=== PATIENT | male | born 1955 | race Caucasian/White ===

== ENCOUNTER → 2017-09-16 | Day surgery (SDC) | payer OTHER ==
[2017-09-03 12:16] LABS: BASOPHILS # (AUTO) 0.1 (0.0-0.1); BASOPHILS % 0.8 % (0.0-1.0); EOSINOPHILS # (AUTO) 0.2 (0.0-0.4); EOSINOPHILS % 2.2 % (0.0-6.0); HEMATOCRIT 38.1 % (38.2-49.6); HEMOGLOBIN 12.9 g/dL (14.0-18.0); LYMPHOCYTES # (AUTO) 2.3 (1.0-3.2); LYMPHOCYTES % 27.5 % (18.0-39.1); MEAN CORPUSCULAR HEMOGLOBIN 32.7 pg (28-32); MEAN CORPUSCULAR HGB CONC 33.9 g/dL (31-35); MEAN CORPUSCULAR VOLUME 96.5 fL (81-99); MONOCYTES # (AUTO) 0.9 (0.2-0.8); MONOCYTES % 10.7 % (4.4-11.3); NEUTROPHILS % 58.2 % (38.7-80.0); PLATELET COUNT 184 x10e3/uL (140-360); RED BLOOD COUNT 3.95 x10e6/uL (4.3-5.7); RED CELL DISTRIBUTION WIDTH 13.5 % (11.7-14.4)
[~2017-09-16] MED LIST: ADVAIR 100-501 EACH; AMBIEN PO; AMBIEN10 MG PO; ATORVASTATIN CA20 MG PO; CHANTIX PO; FENTANYL CITRATE/PF 100MCG/2 ML INJ ONE; HYOSCYAMINE SULFATE 0.5 MG/ML AMP ONE; LIDOCAINE HCL 2% LOCAL INJ 5 ML SDV VIAL INJ ONE; MIDAZOLAM HCL 2 MG/2 ML VIAL ONE; NEXIUM40 MG PO; OMEPRAZOLE20 MG PO; PROPOFOL IV EMULSION 10 MG/ML 50 ML VIAL ONE; XARELTO20 MG
--- NOTE | 2017-09-16 15:18 | Operative Report ---
DATE OF PROCEDURE: September 16, 2017 REFERRING PHYSICIAN: Vijay Chakraborty MD, in [place]. PROCEDURE PERFORMED: Colonoscopy and polypectomy. INDICATIONS FOR COLONOSCOPY: Colorectal cancer screening, personal history of colon polyps. MEDICATION: The patient was done under MAC. Please see anesthesiologist's note. DESCRIPTION OF PROCEDURE: With the patient in the left lateral decubitus position, the flexible fiberoptic Olympus colonoscope was inserted into the rectum with ease and advanced all the way to the cecum. The mucosa overlying the cecum appeared to be within normal limits. One polyp was hot biopsied from the proximal ascending colon, and 1 polyp was snared from the distal ascending colon. One polyp was hot biopsied from the transverse colon. Three polyps were snared and 1 polyp was hot biopsied from the descending colon. Diverticular disease was noted in the sigmoid colon. Five polyps were hot biopsied and 1 polyp was snared from the sigmoid. One polyp was hot biopsied from the rectum. The scope was then retroflexed into the distal rectum. Moderate-size internal hemorrhoids were noted, none of which were actively bleeding. The scope was then straightened out. It was subsequently withdrawn. The patient tolerated the procedure well. IMPRESSION 1. Ascending colon polyps times 2, one snared and one hot biopsied. 2. Transverse colon polyp, hot biopsied times 1. 3. Descending colon polyps times 4, three snared and one hot biopsied. 4. Diverticulosis. 5. Sigmoid colon polyps times 6, five hot biopsied and one snared. 6. Internal hemorrhoids, none actively bleeding. 7. A total of 15 polyps were removed. PLAN: Follow up histology. Initiate high-fiber, low-fat diet. Initiate high-fiber supplement. The patient might benefit from a followup colonoscopy in 1 to 2 years. Job#: [id number] cc:VIJAY CHAKRABORTY M.D.
== END | disposition home or self-care (01) ==
LOC: ENDO 11:59
PROVIDERS: ATTEND Internal Medicine Gastroenterology
DX: Z12.11 Encounter for screening for malignant neoplasm of colon (principal); K63.5 Polyp of colon; K62.1 Rectal polyp; K57.30 Diverticulosis of large intestine without perforation or abscess without bleeding; K64.8 Other hemorrhoids; K21.9 Gastro-esophageal reflux disease without esophagitis; G47.33 Obstructive sleep apnea (adult) (pediatric); J44.9 Chronic obstructive pulmonary disease, unspecified; Z88.5 Allergy status to narcotic agent; Z88.0 Allergy status to penicillin; Z01.810 Encounter for preprocedural cardiovascular examination; Z01.812 Encounter for preprocedural laboratory examination; Z85.528 Personal history of other malignant neoplasm of kidney; Z90.5 Acquired absence of kidney; Z86.711 Personal history of pulmonary embolism; Z87.891 Personal history of nicotine dependence
CPT/HCPCS: 36415; 45384; 45385; 85025; 93005; J1980; J2001; J2250

== ENCOUNTER → 2018-10-01 | Day surgery (SDC) | payer OTHER ==
[2018-09-28 15:09] LABS: BASOPHILS # (AUTO) 0.1 (0.0-0.1); EOSINOPHILS # (AUTO) 0.3 (0.0-0.4); EOSINOPHILS % 3.5 % (0.0-6.0); HEMATOCRIT 40.7 % (38.2-49.6); HEMOGLOBIN 13.5 g/dL (14.0-18.0); LYMPHOCYTES # (AUTO) 1.9 (1.0-3.2); LYMPHOCYTES % 23.5 % (18.0-39.1); MEAN CORPUSCULAR HEMOGLOBIN 31.4 pg (28-32); MEAN CORPUSCULAR HGB CONC 33.2 g/dL (31-35); MEAN CORPUSCULAR VOLUME 94.7 fL (81-99); MONOCYTES % 12.5 % (4.4-11.3); NEUTROPHILS # (AUTO) 4.7 (2.1-6.9); NEUTROPHILS % 58.9 % (38.7-80.0); PLATELET COUNT 206 x10e3/uL (140-360)
[~2018-10-01] MED LIST changes: +GLUCAGON FOR INJ 1 MG VIAL ONE; +HYOSCYAMINE 0.125 MG TAB ONE; -HYOSCYAMINE SULFATE 0.5 MG/ML AMP ONE; +KEYTRUDA IV; +LEVOTHYROXINE137 MCG PO; +MULTI-VITAMIN1 EACH PO; +PHENYLEPHRINE HCL 1% 10 MG/ML VIAL ONE
[2018-10-01 13:25] VITALS: BP 125/89
--- NOTE | 2018-10-01 13:46 | Operative Report ---
DATE OF PROCEDURE: 10/01/2018 SURGEON: Chandler Swain MD PROCEDURE: Colonoscopy with polypectomy note and biopsies. INDICATIONS FOR COLONOSCOPY: Surveillance colonoscopy, personal history of numerous colon polyps. MEDICATIONS: The patient was done under MAC, please see anesthesiologist's note. PROCEDURE IN DETAIL: With the patient in left lateral decubitus position, a flexible fiberoptic Olympus colonoscope was inserted into the rectum with ease and advanced all the way to the cecum. The scope was then withdrawn slowly and mucosa overlying the cecum appeared to be within normal limits. One polyp was removed per cold biopsy forceps in the ascending colon and a prominent fold was noted in the distal ascending colon that was biopsied. The transverse appeared to be within normal limits. Some diverticular disease was noted in the distal descending and the sigmoid colon. Eight polyps were hot biopsied and three were snared from the sigmoid colon. One polyp was hot biopsied from the rectum. The scope was then retroflexed into the distal rectum and moderate-sized internal hemorrhoids were noted, none of which was actively bleeding. The scope was then straightened out, it was subsequently withdrawn. The patient tolerated procedure well. IMPRESSION: 1. Ascending colon polyp, removed per cold biopsy forceps. 2. Prominent fold in distal ascending colon, biopsied. 3. Diverticulosis. 4. Sigmoid colon polyps x11, eight hot biopsied and three snared. 5. Rectal polyp x1, hot biopsied. 6. Internal hemorrhoids, none actively bleeding. PLAN: Follow up histology. Initiate high-fiber, low-fat diet. Initiate high-fiber supplement. A total of 13 polyps were removed. The patient might benefit from a followup colonoscopy in 1 to 2 years. Chandler Swain MD [facility] [place] /[id number] cc: Quang Alvarado
== END | disposition home or self-care (01) ==
LOC: OR 08:00
PROVIDERS: ATTEND Internal Medicine Gastroenterology
DX: K57.30 Diverticulosis of large intestine without perforation or abscess without bleeding (principal); K63.5 Polyp of colon; K62.1 Rectal polyp; K31.7 Polyp of stomach and duodenum; K63.89 Other specified diseases of intestine; K64.8 Other hemorrhoids; K20.8 Other esophagitis; K29.60 Other gastritis without bleeding; K44.9 Diaphragmatic hernia without obstruction or gangrene; G47.33 Obstructive sleep apnea (adult) (pediatric); J44.9 Chronic obstructive pulmonary disease, unspecified; E03.9 Hypothyroidism, unspecified; K21.9 Gastro-esophageal reflux disease without esophagitis; Z90.5 Acquired absence of kidney; F17.210 Nicotine dependence, cigarettes, uncomplicated; Z88.6 Allergy status to analgesic agent; Z88.0 Allergy status to penicillin; Z01.810 Encounter for preprocedural cardiovascular examination; Z01.812 Encounter for preprocedural laboratory examination; Z68.29 Body mass index [BMI] 29.0-29.9, adult; Z83.79 Family history of other diseases of the digestive system
CPT/HCPCS: 36415; 45380; 45384; 45385; 85025; 93005; J1610; J2001; J2250; J2370; J2704; J3010

== ENCOUNTER → 2019-01-21 | Day surgery (SDC) | payer OTHER ==
[2019-01-20 11:12] LABS: BASOPHILS # (AUTO) 0.1 (0.0-0.1); BASOPHILS % 0.8 % (0.0-1.0); EOSINOPHILS # (AUTO) 0.4 (0.0-0.4); EOSINOPHILS % 3.8 % (0.0-6.0); HEMATOCRIT 41.9 % (38.2-49.6); LYMPHOCYTES % 20.8 % (18.0-39.1); MEAN CORPUSCULAR HEMOGLOBIN 32.3 pg (28-32); MEAN CORPUSCULAR HGB CONC 33.4 g/dL (31-35); MEAN CORPUSCULAR VOLUME 96.5 fL (81-99); MONOCYTES % 10.1 % (4.4-11.3); NEUTROPHILS % 63.9 % (38.7-80.0); PLATELET COUNT 215 x10e3/uL (140-360); RED BLOOD COUNT 4.34 x10e6/uL (4.3-5.7)
[~2019-01-21] MED LIST changes: -GLUCAGON FOR INJ 1 MG VIAL ONE; -HYOSCYAMINE 0.125 MG TAB ONE; +IOPAMIDOL 200 MG/ML 20 ML VIAL IT ONE; +IOPAMIDOL 300MG/ML 50ML INFUS..BTL IV ONE; +LEVOTHYROXINE112 MCG PO; +LIDOCAINE HCL 1% 30ML-PF VIAL ONE; -PHENYLEPHRINE HCL 1% 10 MG/ML VIAL ONE; +PROPOFOL IV EMULSION 10 MG/ML 20 ML VIAL ONE; -PROPOFOL IV EMULSION 10 MG/ML 50 ML VIAL ONE; +TRIAMCINOLONE ACET 40 MG/ML VIAL ONE; +TYLENOL PO; +WIXELA 250-501 EACH INH
[2019-01-21 08:30] VITALS: BP 118/75
== END | disposition home or self-care (01) ==
LOC: OR 05:11
PROVIDERS: ATTEND Physical Medicine & Rehabilitation Pain Medicine
DX: M47.896 Other spondylosis, lumbar region (principal); Z98.1 Arthrodesis status; R93.89 Abnormal findings on diagnostic imaging of other specified body structures; G89.29 Other chronic pain; G47.33 Obstructive sleep apnea (adult) (pediatric); J44.9 Chronic obstructive pulmonary disease, unspecified; E78.5 Hyperlipidemia, unspecified; E03.9 Hypothyroidism, unspecified; K21.9 Gastro-esophageal reflux disease without esophagitis; F17.210 Nicotine dependence, cigarettes, uncomplicated; Z88.6 Allergy status to analgesic agent; Z88.0 Allergy status to penicillin; Z01.810 Encounter for preprocedural cardiovascular examination; Z01.812 Encounter for preprocedural laboratory examination; Z85.51 Personal history of malignant neoplasm of bladder; Z85.528 Personal history of other malignant neoplasm of kidney; Z90.5 Acquired absence of kidney
CPT/HCPCS: 36415; 64493; 64494; 64495; 85025; 93005; J2001 ×2; J2250; J2704; J3010; J3301; Q9967; 77003